=== PATIENT | male | born 1990 | race Two or more races ===

== ENCOUNTER 2017-05-25 03:15 | Emergency (ER) | payer SELFPAY ==
[2017-05-25 03:19] VITALS: BP 163/114
--- NOTE | 2017-05-25 03:20 | ER Report ---
History and Physical Time Seen By MD: 03:19 HPI/ROS CHIEF COMPLAINT: Right upper dental pain HISTORY OF PRESENT ILLNESS: 27-year-old male presents ambulatory to the ER complaining of dental pain since Thursday. Patient notes no fevers or difficulty swallowing. He notes pain with chewing. He's had previous dental problems in this area before. He had part of the tooth extracted from this area 6 months ago. REVIEW OF SYSTEMS: Respiratory: No cough, no dyspnea. Cardiovascular: No chest pain, no palpitations. Gastrointestinal: No vomiting, no abdominal pain. Musculoskeletal: No back pain. Allergies: Coded Allergies: No Known Drug Allergies (Unverified , 05/25/17) Home Meds Active Scripts Oxycodone Hcl/Acetaminophen (PERCOCET 5-325 MG TABLET) 1 Each Tablet, 1 EACH PO Q4-6H Y for PAIN, #12 Prov:AMARILYS HOLM DO 05/25/17 Amoxicillin (AMOXICILLIN) 500 Mg Capsule, 1 CAP PO TID for infection, #30 CAPSULE Prov:AMARILYS HOLM DO 05/25/17 Reviewed Nurses Notes: Yes Old Medical Records Reviewed: Yes Constitutional Vital Sign - Last 24 Hours 05/25/17 03:19 Temp 98.4 Pulse 94 Resp 16 B/P (MAP) 163/114 Pulse Ox 96 O2 Delivery Room Air Physical Exam General Appearance: The patient is alert, has no immediate need for airway protection and no current signs of toxicity. Vital signs stable, his blood pressures mildly elevated. Afebrile, pulse ox normal HEENT: Pupils equal and round no injection. TMs normal, examination of the oropharynx reveals the absence of teeth in the right upper molar area. There is a remanent of one molar approximately one quarter normal size. There is surrounding gum inflammation noted. Respiratory: Chest is non tender, lungs are clear to auscultation. Cardiac: regular rate and rhythm Musculoskeletal: Neck: Neck is supple and non tender. No lymphadenopathy, no induration of neck tissues Extremities have full range of motion and are non tender. Skin: No rashes or lesions. DIFFERENTIAL DIAGNOSIS: After history and physical exam differential diagnosis was considered for tooth abscess, tooth infection, dental pain, sinus infection , TMJ disorder Medical Decision Making ED Course/Re-evaluation ED Course Patient was admitted to an examination room. H&P was done. The differential diagnoses was considered. On clinical examination. Patient has inflamed gums in the right upper gum area. There is absence of several teeth and then a remanent of a quarter of a tooth still present. Patient be treated with amoxicillin for infection and Percocet for temporary pain relief. He is advised ibuprofen 600 mg 3 times daily for inflammatory pain relief.. He is given a list of local dentists to follow up with. Decision to Disposition Date: May 25, 2017 Decision to Disposition Time: 03:32 Depart Departure Latest Vital Signs Vital Signs Date Time Temp Pulse Resp B/P (MAP) Pulse Ox O2 Delivery O2 Flow Rate FiO2 05/25/17 03:19 98.4 94 16 163/114 96 Room Air Impression: Primary Impression: Tooth abscess Condition: Improved Disposition: HOME OR SELF-CARE New Scripts Oxycodone Hcl/Acetaminophen (PERCOCET 5-325 MG TABLET) 1 Each Tablet 1 EACH PO Q4-6H Y for PAIN, #12 Prov: AMARILYS HOLM DO 05/25/17 Amoxicillin (AMOXICILLIN) 500 Mg Capsule 1 CAP PO TID for infection, #30 CAPSULE Prov: AMARILYS HOLM DO 05/25/17 Patient Instructions: Dental Abscess (ED) Additional Instructions: Take ibuprofen 200 mg 3 tablets 3 times a day with food Follow-up with dentist as soon as possible AMARILYS HOLM DO May 25, 2017 03:20
[2017-05-25] MEDS ORDERED: OXYC-865 PO (03:34)
[2017-05-25] MEDS ORDERED: AMOX-362 PO (03:34)
[2017-05-25] MEDS ORDERED: oxyCODONE/ACETAMIN 5/325MG TH 2 TAB/BOTTLE PO ONE (03:35)
[2017-05-25] MEDS ORDERED: AMOXICILLIN 500 MG CAP PO ONE (03:35)
== END 2017-05-25 03:44 | disposition home or self-care (01) ==
LOC: ER 03:30
DX: K04.7 Periapical abscess without sinus (principal)
CPT/HCPCS: 99282